=== PATIENT | female | born 1935 | race Native Hawaiian/Other Pacific Islander ===

== ENCOUNTER 2021-05-15 15:13 | Emergency (ER) | payer OTHER ==
[~2021-05-15] VITALS: Ht 142.2 cm; Wt 40.8 kg
[2021-05-15] MEDS: IV NORMAL SALINE 500 ML BAG IV ONE (15:45)
[2021-05-15] MEDS ORDERED: HYDR-894 PO (15:57)
[2021-05-15] MEDS ORDERED: AMLO-212 PO (15:57)
[2021-05-15] MEDS ORDERED: LOSA50TA39 PO (15:57)
[2021-05-15] MEDS ORDERED: ATOR20TA PO (15:57)
[2021-05-15] MEDS ORDERED: MIRT-121 PO (15:57)
[2021-05-15] MEDS ORDERED: OMEP20CA15 PO (15:57)
[2021-05-15] MEDS ORDERED: RENVELA PO (15:57)
[2021-05-15] MEDS ORDERED: MELA3TAB41 PO (15:57)
[2021-05-15] MEDS ORDERED: ALLO100T PO (15:57)
[2021-05-15] MEDS ORDERED: TRIA15CR2 TP (15:57)
[2021-05-15] MEDS ORDERED: SENN-18 PO (15:57)
[2021-05-15] MEDS ORDERED: CINA30TA2 PO (15:57)
[2021-05-15] MEDS ORDERED: ATEN25TA PO (15:57)
[2021-05-15] MEDS ORDERED: LACT10SO3 PO (15:57)
[2021-05-15] MEDS ORDERED: ROPI0.255 PO (15:57)
[2021-05-15] MEDS ORDERED: FOLI0.8T2 PO (15:57)
--- NOTE | 2021-05-15 16:48 | NUR ---
PT IS IN ROOM #1A. DR KAYE EVALUATED THE PT.
--- NOTE | 2021-05-15 17:22 | NUR ---
PT HAS WERY SMALL AND FRAGILE VEINS. UNABLE INSERT IV AFTER 4 ATTEMPTS OF [address] KAYE NOTIFIED.
--- NOTE | 2021-05-15 19:11 | NUR ---
PICC LINE / MIDDLE LINE WAS ORDERED BY DR AKYE. SHAW IS 1900.
[2021-05-15] MEDS ORDERED: LORAZEPAM 0.5 MG TABLET ONE (20:24)
[2021-05-15] MEDS: LORAZEPAM 0.5 MG TABLET PO ONE (20:38)
--- NOTE | 2021-05-15 20:46 | NUR ---
received [facility].
[2021-05-15 20:47] VITALS: BP 117/65
--- NOTE | 2021-05-15 20:47 | NUR ---
DCED pt home accompanied by son. DC instructions given
== END 2021-05-15 20:45 | disposition hospice, home (50) ==
LOC: ER 15:16
DX: R53.1 Weakness (principal); I95.3 Hypotension of hemodialysis; I13.11 Hypertensive heart and chronic kidney disease without heart failure, with stage 5 chronic kidney disease, or end stage renal disease; N18.6 End stage renal disease; Z99.2 Dependence on renal dialysis; G30.9 Alzheimer's disease, unspecified; F02.80 Dementia in other diseases classified elsewhere, unspecified severity, without behavioral disturbance, psychotic disturbance, mood disturbance, and anxiety; E78.5 Hyperlipidemia, unspecified; Z88.6 Allergy status to analgesic agent; Z88.0 Allergy status to penicillin; Z79.899 Other long term (current) drug therapy; R94.31 Abnormal electrocardiogram [ECG] [EKG]; Z20.822 Contact with and (suspected) exposure to COVID-19
CPT/HCPCS: 70450; 71045; 93005; A4663